=== PATIENT | female | born 1985 | race Caucasian/White ===

== ENCOUNTER → 2021-01-26 | Outpatient (REF) | payer OTHER ==
[2021-01-27 12:41] LABS: APPEARANCE, URINE CLOUDY (CLEAR); BILIRUBIN, URINE AUTO NEGATIVE (NEGATIVE); BLOOD, URINE BLOOD 3+ (NEGATIVE); COLOR, URINE YELLOW (YELLOW); GLUCOSE, URINE (UA) AUTO NEGATIVE (NEGATIVE); KETONE, URINE AUTO NEGATIVE (NEGATIVE); LEUKOCYTE ESTERASE, URINE AUTO 2+ (NEGATIVE); NITRITE, URINE AUTO NEGATIVE (NEGATIVE); PROTEIN, URINE AUTO 3+ mg/dL (NEGATIVE); SPECIFIC GRAVITY URINE AUTO 1.026 (1.002-1.035); UROBILINOGEN, URINE AUTO 0.2 mg/dL (0.0-2.0)
[2021-01-27 12:45] LABS: BACTERIA, URINE AUTO NEGATIVE (NEGATIVE); MUCUS, URINE SMALL (NEGATIVE); RBC, URINE AUTO TNTC /HPF (0-3); SQUAMOUS EPITHELIAL CELL UR AU 4 /HPF (0-6); WBC, URINE AUTO TNTC /HPF (0-3)
== END ==
LOC: M LAB REF 12:20
PROVIDERS: ATTEND Physician Assistant Medical
DX: N39.0 Urinary tract infection, site not specified (principal)

== ENCOUNTER → 2022-08-10 | Outpatient (CLI) | payer OTHER | LOC: M RAD 13:38 | PROVIDERS: ATTEND Obstetrics & Gynecology | DX: O26.843 Uterine size-date discrepancy, third trimester (principal); Z3A.38 38 weeks gestation of pregnancy ==

== ENCOUNTER 2022-08-24 05:45 | Inpatient (IN) | payer OTHER ==
[~2022-08-24] VITALS: Ht 165.1 cm; Wt 84.1 kg
[2022-08-24] VITALS (30 sets, daily range): BP systolic 101–142; BP diastolic 55–96
[2022-08-24] MEDS ORDERED: PENICILLIN G POTASSIUM 5 MU IV 5 MU in D5W MINI-BAG PLUS 100 ML IV STA (06:33)
[2022-08-24] MEDS ORDERED: UNRESOLVED CLARIFICATION ENTRY XX STA (06:41)
[2022-08-24] MEDS ORDERED: PRENTAB9 PO (06:47)
[2022-08-24] MEDS ORDERED: IRON27TA2 PO (06:47)
[2022-08-24] MEDS ORDERED: HOME MED LIST COMPLETE! XX SCH (06:50)
[2022-08-24] MEDS: LR 1,000 ML IV SCH ×3 (07:35→22:49)
[2022-08-24 07:43] LABS: HEMATOCRIT 37.7 % (36.0-47.0); HEMOGLOBIN 12.6 g/dl (12.0-15.5); MEAN CORPUSCULAR HEMOGLOBIN 29.2 pg (27.0-33.0); MEAN CORPUSCULAR HGB CONC 33.4 g/dl (32.0-36.5); MEAN CORPUSCULAR VOLUME 87.3 fl (80.0-96.0); PLATELET COUNT, AUTOMATED 254 10^3/uL (150-450); RED BLOOD COUNT 4.32 10^6/uL (4.00-5.40); WHITE BLOOD COUNT 7.7 10^3/uL (4.0-10.0)
[2022-08-24 08:00] LABS: URIC ACID 4.6 MG/DL (3.1-7.8)
[2022-08-24 08:02] LABS: LDH LACTATE DEHYDROGENASE 193 U/L (120-246)
[2022-08-24 08:03] LABS: ALT/SGPT 11 U/L (7.0-40); AST/SGOT 17 U/L (<34); BILIRUBIN,TOTAL 0.5 MG/DL (0.3-1.2); CREATININE FOR GFR 0.52 MG/DL (0.55-1.30); GLOMERULAR FILTRATION RATE > 60.0 (>60)
[2022-08-24] MEDS ORDERED: OXYTOCIN DRIP 30 UNITS in IV 1 EA IV SCH ×2 (09:45→19:55)
[2022-08-24] MEDS ORDERED: LR 1,000 ML IV SCH ×2 (09:45→19:55)
[2022-08-24] MEDS: PEN G POT 3,000,000 UNIT/50 ML 3,000,000 UNIT in IV 1 EA IV SCH ×2 (11:35→15:53)
[2022-08-24] MEDS ORDERED: MORPHINE 10 MG/ML 1ML VIAL IV ONE (15:40)
[2022-08-24] MEDS ORDERED: PROMETHAZINE 25MG/ML 1ML VIAL IV ONE (15:40)
[2022-08-24] MEDS ORDERED: EPIDURAL/PCA KEYS XX PRN (15:55)
[2022-08-24] MEDS ORDERED: NALOXONE INJ 0.4MG/1ML VIAL IV PRN (15:55)
[2022-08-24] MEDS ORDERED: LR 500 ML IV PRN (15:55)
[2022-08-24] MEDS ORDERED: ONDANSETRON 4MG 2ML VIAL IV PRN ×2 (15:55→19:55)
[2022-08-24] MEDS ORDERED: diphenhydrAMINE 50MG/ML VIAL IV PRN (15:55)
[2022-08-24] MEDS ORDERED: ePHEDrine SULFATE 25 MG/5 ML(5MG/ML) SYRINGE IVP PRN (15:55)
[2022-08-24] MEDS: FENTANYL/ROPIVACAINE/NACL BAG 100 ML EPIDURAL SCH (16:14)
[2022-08-24] MEDS ORDERED: LIDOCAINE 1% MDV 20ML VIAL As Ordered ONE (19:08)
[2022-08-24 19:17] LABS: CORD GAS ABE A -5.5; CORD GAS ABE V -5.8; CORD GAS HCO3 A 24.1 MEQ/L; CORD GAS O2 SAT A 30.1 %; CORD GAS O2 SAT V 58.2 %; CORD GAS PCO2 A 64.8 mmHg; CORD GAS PCO2 V 45.4 mmHg; CORD GAS PH A 7.189 UNITS; CORD GAS PH V 7.282 UNITS; CORD GAS PO2 V 26.1 mmHg; CORD GAS SBC A 18.5 MEQ/L; CORD GAS SBC V 18.9 MEQ/L; CORD GAS TCO2 A 26.1 MEQ/L; CORD GAS TCO2 V 22.3 MEQ/L
[2022-08-24] MEDS ORDERED: DIBUCAINE 1% OINTMENT 30GM TOP PRN (19:55)
[2022-08-24] MEDS ORDERED: IBUPROFEN 800 MG TAB PO PRN (19:55)
[2022-08-24] MEDS ORDERED: ANUSOL HC CREAM 30GM TOP PRN (19:55)
[2022-08-24] MEDS ORDERED: RHOGAM 300MCG (1500IU) INJ IM SCH (19:55)
[2022-08-24] MEDS ORDERED: LIDOCAINE 1% MDV 20ML VIAL INFIL ONE (19:55)
[2022-08-24] MEDS ORDERED: METHYLERGONOVINE MALEATE 0.2MG/ML 1ML VIAL IM PRN (19:55)
[2022-08-24] MEDS ORDERED: METOCLOPRAMIDE INJ 10MG/2ML VIAL IV PRN (19:55)
[2022-08-24] MEDS: ACETAMINOPHEN 500 MG TAB PO SCH (20:33)
[2022-08-25] MEDS: FENTANYL/ROPIVACAINE/NACL BAG 100 ML EPIDURAL SCH (01:55)
[2022-08-25] MEDS: ACETAMINOPHEN 500 MG TAB PO SCH ×4 (02:45→19:35)
[2022-08-25 06:00] VITALS: BP 119/73
[2022-08-25 07:29] LABS: HEMATOCRIT 33.5 % (36.0-47.0); MEAN CORPUSCULAR HEMOGLOBIN 28.6 pg (27.0-33.0); MEAN CORPUSCULAR HGB CONC 32.8 g/dl (32.0-36.5); MEAN CORPUSCULAR VOLUME 87.2 fl (80.0-96.0); PLATELET COUNT, AUTOMATED 230 10^3/uL (150-450); RED BLOOD COUNT 3.84 10^6/uL (4.00-5.40); WHITE BLOOD COUNT 13.9 10^3/uL (4.0-10.0)
[2022-08-25] MEDS: PRENATAL VITAMINS CHEWABLE TABLET PO SCH (08:06)
[2022-08-25] MEDS: DOCUSATE SODIUM 100MG CAPSULE PO PRN (08:25)
[2022-08-25 18:00] VITALS: BP 122/74
[2022-08-26] MEDS: ACETAMINOPHEN 500 MG TAB PO SCH ×3 (02:10→13:55)
[2022-08-26 05:58] VITALS: BP 119/67
[2022-08-26] MEDS: PRENATAL VITAMINS CHEWABLE TABLET PO SCH (08:07)
[2022-08-26] MEDS ORDERED: MEASLES,MUMPS,RUBELLA VACCINE INJ (MMR-II) SC.IMMUN ONE (09:00)
[2022-08-26] MEDS: DOCUSATE SODIUM 100MG CAPSULE PO PRN (09:42)
== END 2022-08-26 17:28 | disposition home or self-care (01) | DRG 807 ==
LOC: M LDO 05:45 → M LDI 06:38 → M OBS 21:45
PROVIDERS: ADMIT Obstetrics & Gynecology; ATTEND Obstetrics & Gynecology
PROC: 10E0XZZ Delivery of Products of Conception, External Approach (ICD-10-PCS; principal; 2022-08-24)
PROC: 0KQM0ZZ Repair Perineum Muscle, Open Approach (ICD-10-PCS; 2022-08-24)
DX: O34.219 Maternal care for unspecified type scar from previous cesarean delivery (principal); Z37.0 Single live birth; O48.0 Post-term pregnancy; Z3A.40 40 weeks gestation of pregnancy; O99.824 Streptococcus B carrier state complicating childbirth; O70.1 Second degree perineal laceration during delivery